=== PATIENT | female | born 1950 | race Two or more races ===

== ENCOUNTER 2021-08-18 19:29 | Emergency (ER) | payer OTHER ==
[~2021-08-18] VITALS: Ht 157.5 cm; Wt 58.1 kg
[2021-08-18 19:29] VITALS: BP 137/86
[2021-08-18] MEDS ORDERED: HYDROcodone-ACET 5/325MG TAB PO ONE (23:00)
== END 2021-08-19 00:39 | disposition home or self-care (01) ==
LOC: ER 19:36
DX: S82.002A Unspecified fracture of left patella, initial encounter for closed fracture (principal); Z88.2 Allergy status to sulfonamides; W01.0XXA Fall on same level from slipping, tripping and stumbling without subsequent striking against object, initial encounter; Y93.89 Activity, other specified; Y92.89 Other specified places as the place of occurrence of the external cause; Y99.8 Other external cause status
CPT/HCPCS: 29505; 73562